=== PATIENT | female | born 1940 | race Caucasian/White ===

== ENCOUNTER → 2021-02-06 13:22 | Outpatient (CLI) | payer MEDICARE, SELFPAY | PROVIDERS: Visit Provider Internal Medicine Gastroenterology | DX: Z01.812 Encounter for preprocedural laboratory examination (principal); Z20.822 Contact with and (suspected) exposure to COVID-19; Z12.11 Encounter for screening for malignant neoplasm of colon | CPT/HCPCS: U0003 ==

== ENCOUNTER 2021-02-09 12:16 | Day surgery (SDC) | payer MEDICARE, SELFPAY ==
[2021-02-03 14:09] VITALS: BMI 25.7
[2021-02-09 10:51] VITALS: BP 106/58; PULSE 66; RESP 16; O2SAT 96
[2021-02-09 12:37] VITALS: BP 108/64; PULSE 68; RESP 16; TEMP 36.6; O2SAT 96
--- NOTE | 2021-02-09 12:55 | P.PN_ITS ---
[facility] Anesthesia Checklist - Patient Identification Patient Identification: Arm Band - Structural Data Admitted From: Home Planned Operative Procedure/s: colonoscopy Consent for Planned Operative Procedure(s) Verified: Yes Verified Documents: Surgical Consent, History and Physical - NPO Status Verified Time NPO: 00:00 - Additional verifications Anesthesia Reactions: No - Airway Assessment C-Spine Mobility Assessed: Yes (mp2) TMJ Mobility Assessed: Yes Dentition: Good Dentition - Neurological Assessment Level of Consciousness: Awake, Alert - Anesthesia Plan Anesthesia Risk discussed: Yes Anesthesia Plan: Verified ASA Class: II Anesthesia Type: MAC [facility] History I have reviewed the patient's past medical history: Yes Medical History: Reports:: Anxiety, Cancer (skin), Hyperlipidemia, Hypertension, Lung Disease (sob) Denies:: Diabetes Mellitus Type 1, Diabetes Mellitus Type 2, Internal Pacemaker, Seizures *Have you ever received a pneumonia vaccine?: Yes *Have you received a flu vaccine this season?: Yes Anesthesia experience/problems:: nac Other Surgeries: No: Pacemaker Amputation: No Fractures: Yes - *Social History Last grade of school completed: 9th or 10th Smoking Status: Current every day smoker Tobacco Type: cigarettes # Packs/Day (cigarettes): 1 Alcohol Intake: current Alcohol Intake Frequency:: holidays/special occasions only Substance Use Type: denies use *Occupational Status:: retired Housing: house Household Members: none *Travel in the last 8 weeks: None Family Hx:: No significant family history
--- NOTE | 2021-02-09 13:29 | HMH.PROC ---
[facility] Procedure Note Procedure Note:: Colonoscopy Procedure Report: Colonoscopy with cold snare polypectomy Endoscopist: Daren Freeman II, MD Referring physician: Darrin Machado MD Date of Procedure: February 09, 2021 Equipment: Olympus 190 variable stiffness pediatric colonoscope Sedation: MAC sedation Indication: Mrs. Maciel is an 81-year-old female who is here for follow-up screening/surveillance colonoscopy secondary to a personal history of multiple adenomatous colon polyps. She also has a strong family history of colon cancer. Her brother had colon cancer at the age of 68 and her mother had uterine cancer. The patient had a colonoscopy with me in October 2015 and had 8 polyps (tubular adenomas x8) removed. Her last colonoscopy with me in November 2017 revealed 2 polyps (tubular adenomas x2) which were removed. The patient does have some chronic constipation for which she takes MiraLAX plus Citrucel mixed together and a stool softener. She does get some intermittent hemorrhoidal bleeding and did have prior hemorrhoid banding as well as prior hemorrhoidectomy. She reports no unintentional weight loss. Procedure: Prior to the procedure, a history and physical exam was performed, and patient's medications and allergies were reviewed. The risks, benefits and alternatives of the sedation and procedure were discussed with the patient. All questions were answered and informed consent was obtained. The patient was brought to the procedure room. Patient identification and proposed procedure were verified by the physician and the nurse. The patient was placed in a left lateral decubitus position and the scope was passed under direct vision. Throughout the procedure, the patient's blood pressure, pulse, and oxygen saturations were monitored continuously. The colonoscopy was accomplished without difficulty. The patient tolerated the procedure well. Findings: On digital rectal examination there was normal rectal tone. There were no external hemorrhoids. The colonoscope was introduced through the anal canal to the rectum and advanced to the cecum. The ileocecal valve and appendiceal orifice were identified. The scope was advanced a short distance into the ileum which appeared grossly normal. The scope was then withdrawn into the colon. There were 6 colon polyps (cecum x1 (5 mm), transverse x2 (4 and 6 mm), descending x1 (4 mm) and sigmoid x2 (5 and 7 mm)). All of these polyps were removed via cold snare polypectomy. There were scattered diverticuli throughout the colon but more predominantly in the descending and sigmoid colon (LEFT colon). There was mild melanosis coli within the colon. The rectum itself was normal. Upon retroflexion within the rectum there were grade 1-2 internal hemorrhoids. The preparation was excellent throughout with [place] Preparation Score of 9. The cecal time was 16 minutes. Impression: 1. Colonic polyps x6 2. Pandiverticulosis 3. Grade 1-2 internal hemorrhoids Plan: I will discussed the findings with the patient and family. We will need to determine whether further surveillance is warranted based upon her multiple adenomatous polyps and family history. I would encourage continuation of the fiber bowel regimen (combined MiraLAX plus Citrucel mixed together p.o. every morning).
[2021-02-09 13:31] VITALS: BP 81/50; PULSE 66; RESP 12; TEMP 36.5; O2SAT 98
[2021-02-09 13:41] VITALS: BP 102/52; PULSE 60; RESP 16; O2SAT 97
[2021-02-09 14:01] VITALS: BP 109/68; PULSE 60; RESP 16; TEMP 36.5; O2SAT 98
== END 2021-02-09 14:01 | disposition home or self-care (01) ==
LOC: OUTP 12:20
PROVIDERS: PCP Internal Medicine; Visit Provider Internal Medicine Gastroenterology
PROC: 0DJD8ZZ Inspection of Lower Intestinal Tract, Via Natural or Artificial Opening Endoscopic (ICD-10-PCS; CPT 45378; principal; 2021-02-09 13:30)
DX: Z12.11 Encounter for screening for malignant neoplasm of colon (principal); Z86.010 Personal history of colon polyps; Z80.0 Family history of malignant neoplasm of digestive organs; K63.5 Polyp of colon; K57.30 Diverticulosis of large intestine without perforation or abscess without bleeding; K64.0 First degree hemorrhoids; F41.9 Anxiety disorder, unspecified; E78.5 Hyperlipidemia, unspecified; I10 Essential (primary) hypertension; J98.4 Other disorders of lung; Z85.828 Personal history of other malignant neoplasm of skin; Z72.0 Tobacco use
CPT/HCPCS: 45385; 88305